=== PATIENT | female | born 1990 | race Caucasian/White ===

== ENCOUNTER 2016-10-05 10:11 | Emergency (ER) | payer MEDICAID, OTHER ==
[~2016-10-05] VITALS: Ht 152.4 cm; Wt 52.2 kg
[~2016-10-05 10:11] MED LIST: PREN0.01 PO; TYLE3 PO
[2016-10-05 10:45] VITALS: RESP 18
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
[2016-10-05 12:11] LABS: BLOOD, URINE NEG (NEG); COMMENT (UR) CULT NOT INDICATED; CULTURE IF INDICATED CULT NOT INDICATED; GLUCOSE,URINE NEG (NEG); KETONE, URINE NEG (NEG); NITRITE,URINE NEG (NEG); SQUAMOUS EPITHELIAL CELL URINE 3 /hpf (0-5); URINE COLOR LIGHT-YELLOW (YELLW/STRAW)
== END 2016-10-05 12:31 | disposition home or self-care (01) ==
LOC: HOBED 10:11
DX: R10.9 Unspecified abdominal pain (principal); Z3A.18 18 weeks gestation of pregnancy
CPT/HCPCS: 81001; 87210; 99283

== ENCOUNTER 2016-10-13 13:52 | Emergency (ER) | payer OTHER ==
[~2016-10-13 13:52] MED LIST changes: -TYLE3 PO
--- NOTE | 2016-10-13 14:28 | PD ---
HPI Chief Complaint Nausea and vomiting Travel History International Travel<30 Days: No Contact w/Intl Traveler<30Days: No Known Affected Area: No History of Present Illness HPI 22 yo at 20w 2d presents with nausea and vomiting. Also reports diarrhea. Reports symptoms beginning this morning. Reports sick contacts at home. Denies F/C. No problems this . Allergies-Medications (Allergen,Severity, Reaction): Coded Allergies: Penicillin (Verified Allergy, Unknown, 06/21/14) Uncoded Allergies: CINNAMIN (Allergy, Severe, 02/08/08) Home Meds Active Scripts Ondansetron (Zofran)4 Mg Tab4 Mg PO Q6HR PRN (NAUSEA OR VOMITING) #10 TAB Ref 0 Prov:Connie Woodruff MD 10/13/16 Reported Medications Multivit/Min/Fol Ac/Iron/Pren ( Vit ( Plus)) Tab1 Tab PO DAILY 06/21/14 Physical Exam AFVSS BP 106/71 Narrative GENERAL: Well-nourished, well-developed patient. SKIN: Warm and dry. HEAD: Normocephalic and atraumatic. EYES: No scleral icterus. No injection or drainage. ENT: No nasal drainage noted. Mucous membranes pink. Airway patent. NECK: Supple, trachea midline. No JVD. CARDIOVASCULAR: Regular rate and rhythm without murmurs, gallops, or rubs. RESPIRATORY: Breath sounds equal bilaterally. No accessory muscle use. BREASTS: Bilateral exam showed no masses , no retractions, no nipple discharge. ABDOMEN/GI: Abdomen soft, non-tender, bowel sounds present, no rebound, no guarding Gravid to [-] weeks size Fundal Height: [-] GENITOURINARY: External Genitalia: intact and normal in appearance BUS glands: [-] Cervix: [-] Dilatation: [-] Effacement: [-] Station: [-] Presentation: [-] Membranes: [intact or ruptured] Uterine Contractions: [-] FHT's: Category: [-] Baseline: [-] Reactive: [-] Variability: [-] Decels: [-] EXTREMITIES: No cyanosis or edema. BACK: Nontender without obvious deformity. No CVA tenderness. NEUROLOGICAL: Awake and alert. Motor and sensory grossly within normal limits. Five out of 5 muscle strength in all muscle groups. Normal speech. Data Data Labs Laboratory Tests Test 10/13/16 10/13/16 14:05 14:40 Urine Color YELLOW Urine Turbidity HAZY Urine pH 5.5 Urine Specific [place] 1.026 Urine Protein TRACE mg/dL Urine Glucose (UA) NEG mg/dL Urine Ketones 150 mg/dL Urine Occult Blood NEG Urine Nitrite NEG Urine Bilirubin NEG Urine Urobilinogen LESS THAN 2.0 MG/DL Urine Leukocyte Esterase NEG Urine RBC LESS THAN 1 /hpf Urine WBC 2 /hpf Urine Squamous Epithelial 2 /hpf Cells Urine Mucus FEW /lpf Microscopic Urinalysis Comment CULT NOT INDICATED White Blood Count 13.5 TH/MM3 Red Blood Count 4.62 MIL/MM3 Hemoglobin 13.9 GM/DL Hematocrit 41.2 % Mean Corpuscular Volume 89.2 FL Mean Corpuscular Hemoglobin 30.1 PG Mean Corpuscular Hemoglobin 33.7 % Concent Red Cell Distribution Width 12.9 % Platelet Count 255 TH/MM3 Mean Platelet Volume 8.5 FL Neutrophils (%) (Auto) 93.7 % Lymphocytes (%) (Auto) 3.8 % Monocytes (%) (Auto) 2.3 % Eosinophils (%) (Auto) 0.1 % Basophils (%) (Auto) 0.1 % Neutrophils # (Auto) 12.6 TH/MM3 Lymphocytes # (Auto) 0.5 TH/MM3 Monocytes # (Auto) 0.3 TH/MM3 Eosinophils # (Auto) 0.0 TH/MM3 Basophils # (Auto) 0.0 TH/MM3 CBC Comment DIFF FINAL Differential Comment Sodium Level 141 MEQ/L Potassium Level 3.7 MEQ/L Chloride Level 108 MEQ/L Carbon Dioxide Level 25.0 MEQ/L Anion Gap 8 MEQ/L Blood Urea Nitrogen 8 MG/DL Creatinine 0.42 MG/DL Estimat Glomerular Filtration 185 ML/MIN Rate Random Glucose 86 MG/DL Calcium Level 8.7 MG/DL Total Bilirubin 0.7 MG/DL Aspartate Amino Transf 20 U/L (AST/SGOT) Alanine Aminotransferase 21 U/L (ALT/SGPT) Alkaline Phosphatase 58 U/L Total Protein 7.6 GM/DL Albumin 3.4 GM/DL [facility] Interpretation(s) at 20w 2d with nausea and vomiting. Plan Will begin IVF and antiemetics. Will obtain CBC and CMP. UA ordered. Patient feeling better and voiding after IVF and antiemetics. Will d/c home after tolerating po. Rx for Zofran. Close f/u with OB provider encouraged. All questions answered. Diagnosis Diagnosis: Primary Impression: 20 weeks gestation of Additional Impression: Nausea and vomiting during prior to 22 weeks gestation Disposition: 01 DISCHARGE HOME Condition: Stable Scripts Ondansetron (Zofran)4 Mg Tab4 Mg PO Q6HR PRN (NAUSEA OR VOMITING) #10 TAB Ref 0 Prov:Connie Woodruff MD 10/13/16 Connie Woodruff MD Oct 13, 2016 14:28
[2016-10-13] MEDS ORDERED: LACTATED RINGER'S 1000 ML INJ 1,000 ML IV SCH (15:00)
[2016-10-13] MEDS ORDERED: LACTATED RINGER'S 1000 ML INJ 1,000 ML IV ONE (15:00)
[2016-10-13 15:13] LABS: AUTOMATED NEUTROPHIL # 12.6 TH/MM3 (1.8-7.7); BASOPHIL % 0.1 % (0.0-2.0); EOSINOPHIL % 0.1 % (0.0-4.0); HEMATOCRIT 41.2 % (35.0-46.0); HEMO FLAGS DIFF FINAL; LYMPH % 3.8 % (9.0-44.0); LYMPHOCYTE # 0.5 TH/MM3 (1.0-4.8); MEAN CELL VOLUME 89.2 FL (80.0-100.0); MEAN CORPUSCULAR HEMOGLOBIN 30.1 PG (27.0-34.0); MEAN CORPUSCULAR HGB CONC 33.7 % (32.0-36.0); MONO % 2.3 % (0.0-8.0); NEUT % 93.7 % (16.0-70.0); PLATELET COUNT 255 TH/MM3 (150-450); RED BLOOD COUNT 4.62 MIL/MM3 (4.00-5.30); RED CELL DISTRIBUTION WIDTH 12.9 % (11.6-17.2); WHITE BLOOD COUNT 13.5 TH/MM3 (4.0-11.0)
[2016-10-13 15:22] LABS: BLOOD, URINE NEG (NEG); GLUCOSE,URINE NEG (NEG); KETONE, URINE 150 mg/dL (NEG); MUCUS URINE FEW /lpf (OCC); NITRITE,URINE NEG (NEG); PH, URINE 5.5 (5.0-8.5); SQUAMOUS EPITHELIAL CELL URINE 2 /hpf (0-5); URINE COLOR YELLOW (YELLW/STRAW)
[2016-10-13 15:35] LABS: ANION GAP 8 MEQ/L (5-15); AST (GOT) 20 U/L (15-37); BLOOD UREA NITROGEN 8 MG/DL (7-18); CHLORIDE 108 MEQ/L (98-107); GLOMERULAR FILTRATION RATE 185 ML/MIN (>89); POTASSIUM 3.7 MEQ/L (3.5-5.1); SODIUM (NA) 141 MEQ/L (136-145)
[2016-10-13 15:36] LABS: COMMENT (UR) CULT NOT INDICATED; CULTURE IF INDICATED CULT NOT INDICATED
[2016-10-13 15:38] LABS: ALKALINE PHOSPHATASE 58 U/L (45-117); ALT (GPT) 21 U/L (10-53); TOTAL BILIRUBIN ADULT 0.7 MG/DL (0.2-1.0)
[2016-10-13] MEDS ORDERED: ONDANSETRON HCL 4 MG/2 ML VIAL IV PUSH ONE (16:00)
[2016-10-13] MEDS ORDERED: ACETAMINOPHEN 325 MG TAB PO ONE (16:30)
[2016-10-13] MEDS ORDERED: ZOFR4TAB PO (17:28)
== END 2016-10-13 17:44 | disposition home or self-care (01) ==
LOC: HOBED 13:52
DX: O26.892 Other specified pregnancy related conditions, second trimester (principal); R11.2 Nausea with vomiting, unspecified; R19.7 Diarrhea, unspecified; Z3A.20 20 weeks gestation of pregnancy
CPT/HCPCS: 80053; 81001; 85025; 96361; 96374; 99284; J2405; J7120

== ENCOUNTER 2016-11-01 17:22 | Emergency (ER) | payer OTHER ==
[~2016-11-01 17:22] MED LIST changes: +ZOFR4TAB PO
--- NOTE | 2016-11-01 18:19 | PD ---
HPI Chief Complaint leakage of fluid Date Seen: Nov 01, 2016 Travel History International Travel<30 Days: No Contact w/Intl Traveler<30Days: No Known Affected Area: No History of Present Illness HPI This is a 26y/o at 22w2d who presents to the [facility] with reports of leakage of clear fluid at 4pm saturating 2 washcloths. She denies meche bleeding or contractions with only some back pain. Amnisure noted to be negative. care with Dr. Baerden, care complicated by: 1. h/o LGA baby Para: 1 : 2 History Past Medical History Medical History: Denies Significant Hx Obstetric History Obstetric History 10/11/14 FT Male 9lbs "Kunal" Past Surgical History Surgical History: No Previous Surgery Family History Family History: Negative Social History Alcohol Use: No Tobacco Use: No Substance Abuse: No Allergies-Medications (Allergen,Severity, Reaction): Coded Allergies: Penicillin (Verified Allergy, Unknown, 06/21/14) Uncoded Allergies: CINNAMIN (Allergy, Severe, 02/08/08) Home Meds Active Scripts Ondansetron (Zofran)4 Mg Tab4 Mg PO Q6HR PRN (NAUSEA OR VOMITING) #10 TAB Ref 0 Prov:Connie Woodruff MD 10/13/16 Reported Medications Multivit/Min/Fol Ac/Iron/Pren ( Vit ( Plus)) Tab1 Tab PO DAILY 06/21/14 Review of Systems Except as stated in HPI: all other systems reviewed are Neg Physical Exam Narrative GENERAL: Well-nourished, well-developed patient. SKIN: Warm and dry. HEAD: Normocephalic and atraumatic. EYES: No scleral icterus. No injection or drainage. ENT: No nasal drainage noted. Mucous membranes pink. Airway patent. NECK: Supple, trachea midline. No JVD. CARDIOVASCULAR: Regular rate and rhythm without murmurs, gallops, or rubs. RESPIRATORY: Breath sounds equal bilaterally. No accessory muscle use. BREASTS: Bilateral exam showed no masses , no retractions, no nipple discharge. ABDOMEN/GI: Abdomen soft, non-tender, bowel sounds present, no rebound, no guarding Gravid to 23 weeks size GENITOURINARY: External Genitalia: intact and normal in appearance Sterile speculum exam: visually closed, no pooling noted Uterine Contractions: None FHT's: Category: appropriate for gestational age EXTREMITIES: No cyanosis or edema. BACK: Nontender without obvious deformity. No CVA tenderness. NEUROLOGICAL: Awake and alert. Motor and sensory grossly within normal limits. Five out of 5 muscle strength in all muscle groups. Normal speech. Data Data Vital Signs Reviewed: Yes Orders Vital Signs (Adult) .ON ADMISSION (11/01/16 18:00) ^ Labor Status (11/01/16 18:00) Pamg-1 Test .ONCE (11/01/16 18:00) MDM Medical Record Reviewed: No Narrative Course / MDM 26y/o at 22w2d who presents for evaluation of PPROM. -reassuring status -no leakage of fluid on speculum exam -amnisure negative Plan -d/c home -f/u with Dr. Bustos as scheduled on Wednesday Diagnosis Diagnosis: Primary Impression: 20 weeks gestation of Additional Impression: Abdominal cramping affecting Disposition: DISCHARGE HOME Patient Instructions: Premature Rupture of Membranes (ED) Shanique Patel MD Nov 01, 2016 18:19
== END 2016-11-01 18:30 | disposition home or self-care (01) ==
LOC: HOBED 17:22
DX: O26.892 Other specified pregnancy related conditions, second trimester (principal); R10.9 Unspecified abdominal pain; Z3A.22 22 weeks gestation of pregnancy
CPT/HCPCS: 84112; 99282

== ENCOUNTER 2017-01-06 18:42 | Emergency (ER) | payer SELFPAY ==
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
== END 2017-01-06 19:52 | disposition home or self-care (01) ==
LOC: HOBED 18:42
DX: O47.03 False labor before 37 completed weeks of gestation, third trimester (principal); M54.5 Low back pain; Z3A.31 31 weeks gestation of pregnancy
CPT/HCPCS: 99283

== ENCOUNTER 2017-02-22 05:38 | Inpatient (IN) | payer MEDICAID ==
[2017-02-22] VITALS (11 sets, daily range): BP systolic 106–149; BP diastolic 60–75; PULSE 67–98; RESP 15–20; TEMP 97.5–98; O2SAT 100
[~2017-02-22] VITALS: Ht 160 cm; Wt 68.9 kg
[2017-02-22] MEDS ORDERED: CITRIC ACID-SODIUM CITRATE LIQ 30 ML UDC PO SCH (06:15)
[2017-02-22] MEDS ORDERED: CLINDAMYCIN 600 MG/NS 100 ML IV SCH ×2 (06:15)
[2017-02-22] MEDS ORDERED: LACTATED RINGER'S 1000 ML IV SCH (06:15)
[2017-02-22] MEDS ORDERED: LACTATED RINGER'S 1000 ML IV ONE (06:15)
[2017-02-22 06:23] LABS: AUTOMATED NEUTROPHIL # 6.5 TH/MM3 (1.8-7.7); BASOPHIL # 0.1 TH/MM3 (0-0.2); BASOPHIL % 0.5 % (0.0-2.0); EOSINOPHIL # 0.2 TH/MM3 (0-0.4); EOSINOPHIL % 2.4 % (0.0-4.0); HEMO FLAGS DIFF FINAL; LYMPH % 22.6 % (9.0-44.0); LYMPHOCYTE # 2.2 TH/MM3 (1.0-4.8); MEAN CELL VOLUME 89.2 FL (80.0-100.0); MEAN CORPUSCULAR HEMOGLOBIN 30.8 PG (27.0-34.0); MEAN CORPUSCULAR HGB CONC 34.6 % (32.0-36.0); MONO % 7.9 % (0.0-8.0); NEUT % 66.6 % (16.0-70.0); PLATELET COUNT 233 TH/MM3 (150-450); RED BLOOD COUNT 4.15 MIL/MM3 (4.00-5.30); RED CELL DISTRIBUTION WIDTH 13.4 % (11.6-17.2); WHITE BLOOD COUNT 9.8 TH/MM3 (4.0-11.0)
[2017-02-22 06:42] LABS: BLOOD, URINE NEG (NEG); COMMENT (UR) CULT NOT INDICATED; CULTURE IF INDICATED CULT NOT INDICATED; GLUCOSE,URINE NEG (NEG); KETONE, URINE NEG (NEG); MUCUS URINE FEW /lpf (OCC); NITRITE,URINE NEG (NEG); PH, URINE 6.5 (5.0-8.5); SQUAMOUS EPITHELIAL CELL URINE 1 /hpf (0-5); URINE COLOR YELLOW (YELLW/STRAW)
[2017-02-22] MEDS ORDERED: EPIDURAL-NALOXONE HCL 0.4 MG/ML AMP IV PUSH PRN (07:30)
[2017-02-22] MEDS ORDERED: EPIDURAL-DIPHENHYDRAMINE HCL 50 MG/ML VIAL IV PUSH PRN (07:30)
[2017-02-22] MEDS ORDERED: EPIDURAL-DO NOT ADMINISTER ANTICOAGULANTS PRN (07:30)
[2017-02-22] MEDS ORDERED: EPIDURAL-DIPHENHYDRAMINE HCL 50 MG CAP PO PRN (07:30)
[2017-02-22] MEDS ORDERED: EPIDURAL-NO SYSTEMIC NARCOTICS PRN (07:30)
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
[2017-02-22] MEDS ORDERED: ACETAMINOPHEN 1000 MG/100 ML 100 ML IV ONE (07:33)
[2017-02-22] MEDS ORDERED: DEXAMETHASONE SOD PHOS 4 MG/ML VIAL ONE (07:48)
[2017-02-22] MEDS ORDERED: SODIUM CHLORIDE 0.9% 20 ML VIAL ONE (07:49)
[2017-02-22] MEDS ORDERED: BUPIVACAINE HCL PF 0.5% 30 ML VIAL ONE (07:49)
--- NOTE | 2017-02-22 08:08 | PD.OB.DELI ---
Procedure Note Section Procedure Pre Op Diagnosis: (1) 39 weeks gestation of (2) History of trauma Post Op Diagnosis: (1) 39 weeks gestation of Performed by Tristen Bustos Procedure: Primary Low Transverse Sec Indication for delivery: Maternal medical problems (previous traumatic ) Previous condition: None Informed consent obtained: For anesthesia, For procedure Confirmed correct: Patient, Procedure, Time-out taken Anesthesia: Spinal Medication prior to procedure: Antibiotics, IV Monitoring during procedure: Blood pressure monitoring Urinary catheter: Inserted using sterile technique, To dependent drainage Sterile preparation: Duraprep Position: Supine with wedge to left side Operative Features Skin Incision: Pfannenstiel Uterine Incision: Low transverse w/knife / blunt ext Membranes Ruptured: Artificially Presentation: Occiput anterior Delivery date: Feb 22, 2017 Delivery time: 07:44 Delivery of : Uneventful Infant: Male, Single One Minute : 8 Five Minute : 8 Weight: unknown Status of : Viable Placenta delivered: Intact Medications: Antibiotics, Oxytocin Estimated blood loss: 500 Procedure tolerated: Well Maternal Condition: Stable Condition: Stable Tristen Bustos MD Feb 22, 2017 08:08
[2017-02-22] MEDS ORDERED: SODIUM CHLORIDE 0.9% FLUSH 10 ML FLUSH IV FLUSH PRN (08:15)
--- NOTE | 2017-02-22 08:28 | MP ---
cc: AMERICO BUSTOS M.D. DATE OF SURGERY 02/22/2017 PROCEDURE Primary low transverse section. PREOPERATIVE DIAGNOSES 1. 39 weeks. 2. The patient has had a traumatic injury both vaginally and psychologically with her first delivery. POSTOPERATIVE DIAGNOSES 1. 39 weeks. 2. The patient has had a traumatic injury both vaginally and psychologically with her first delivery. SURGEON Dr. Americo Bustos ESTIMATED BLOOD LOSS 500 cc. ANESTHESIA Spinal, Dr. Alexis COMPLICATIONS None. FINDINGS Live male , Apgars of 8 and 8. PROCEDURE IN DETAIL After informed consent, the patient was taken to the operating room where she was placed under spinal anesthesia, placed n supine position in left lateral tilt. The abdomen, perineum and vagina were prepped and draped in normal sterile fashion after a time-out was taken and the was under adequate anesthesia. A Pfannenstiel skin incision was carried sharply through the skin to the fascia. The fascia was nicked in the midline. The incision was extended laterally using Tirado scissors. Rectus muscles dissected off fascia by sharp and blunt dissection and the rectus muscle in the midline. The peritoneum was entered bluntly with a finger. The incision was extended laterally using blunt traction. A hand was placed into the abdomen. The uterus was noted to be midline. A bladder flap was created by dissecting the bladder off the lower use segment. A low-transverse uterine incision was then made, carried sharply into the uterine cavity. Clear fluid was noted. The incision was then extended laterally using blunt traction. A hand was placed in the uterus. The 's head was guided through the incision. Using fundal pressure the infant's head readily delivered. The nose and mouth suctioned well. Cord was clamped and cut and the was handed to pediatrics in attendance. Cord blood was collected. Placenta was delivered manually. The uterus was exteriorized, wiped free from all remaining products of conception. The uterine incision was then closed with running locking stitch of chromic suture. A second imbricating layer was placed. Good hemostasis was achieved. The uterus was placed back in the abdomen, noted to be hemostatic. The peritoneum was closed with Vicryl suture. The fascia was closed with Vicryl suture. The skin was closed with subcuticular stitch. Each layer was noted be hemostatic prior to closure. The patient tolerated the procedure well. MD LEONELA Collado 8:10 AM 8:17 AM
[2017-02-22] MEDS ORDERED: OXYTOCIN 30 UNITS-500ML PREMIX 500 ML IV ONE (08:30)
[2017-02-22] MEDS ORDERED: OXYTOCIN 30 UNITS-500ML PREMIX 500 ML ONE (08:39)
[2017-02-22] MEDS ORDERED: SODIUM CHLORIDE 0.9% FLUSH 10 ML FLUSH IV FLUSH SCH (09:00)
[2017-02-22] MEDS ORDERED: LACTATED RINGER'S 1000 ML INJ 1,000 ML IV SCH (13:08)
[2017-02-22] MEDS: SIMETHICONE 80 MG CHEWABLE TAB PO PRN (16:04)
[2017-02-22] MEDS: IBUPROFEN 600 MG TAB PO PRN (16:04)
[2017-02-22] MEDS ORDERED: OXYTOCIN 30 UNITS-500ML PREMIX 500 ML IV PRN (18:15)
[2017-02-22] MEDS: KETOROLAC TROMETHAMINE 60 MG/2 ML (IM) VIAL IM PRN (22:20)
[2017-02-23 01:36] VITALS: BP 104/56; PULSE 62; RESP 18; TEMP 97.6
[2017-02-23 01:56] VITALS: BP 104/56; PULSE 62; RESP 18; TEMP 97.6
[2017-02-23 04:00] VITALS: BP 100/56; PULSE 63; RESP 18; TEMP 97.9
[2017-02-23] MEDS: KETOROLAC TROMETHAMINE 60 MG/2 ML (IM) VIAL IM PRN (04:04)
[2017-02-23 05:48] LABS: AUTOMATED NEUTROPHIL # 8.1 TH/MM3 (1.8-7.7); BASOPHIL % 0.1 % (0.0-2.0); EOSINOPHIL # 0.1 TH/MM3 (0-0.4); EOSINOPHIL % 1.1 % (0.0-4.0); HEMATOCRIT 27.7 % (35.0-46.0); HEMO FLAGS DIFF FINAL; LYMPH % 21.4 % (9.0-44.0); LYMPHOCYTE # 2.5 TH/MM3 (1.0-4.8); MEAN CELL VOLUME 90.2 FL (80.0-100.0); MEAN CORPUSCULAR HEMOGLOBIN 30.2 PG (27.0-34.0); MEAN CORPUSCULAR HGB CONC 33.5 % (32.0-36.0); MONO % 8.9 % (0.0-8.0); NEUT % 68.5 % (16.0-70.0); PLATELET COUNT 224 TH/MM3 (150-450); RED BLOOD COUNT 3.07 MIL/MM3 (4.00-5.30); RED CELL DISTRIBUTION WIDTH 13.6 % (11.6-17.2); WHITE BLOOD COUNT 11.8 TH/MM3 (4.0-11.0)
[2017-02-23] MEDS: oxyCODONE/ACETAMINOPHEN 5 MG/325 MG TAB PO PRN ×5 (06:33→23:19)
[2017-02-23 08:20] VITALS: BP 87/58; PULSE 96; RESP 16; TEMP 98
[2017-02-23] MEDS: IBUPROFEN 600 MG TAB PO PRN ×3 (10:40→23:19)
[2017-02-23] MEDS: DOCUSATE SODIUM 50 MG/SENNA 8.6 MG TAB PO PRN (15:18)
[2017-02-23] MEDS ORDERED: DIPHTH/TETANUS/ACEL PERTUSSIS (BOOSTER) 0.5 ML VIAL/PFS IM ONE (16:00)
[2017-02-23] MEDS ORDERED: MEASLES, MUMPS, RUBELLA VACCINE 0.5 ML VIAL SQ ONE (16:00)
--- NOTE | 2017-02-23 17:35 | HHI.DCPOC ---
Discharge Care Plan Diagnosis: (1) History of trauma Report Symptoms to Your Doctor -Temperature above 100.5 degrees -Redness, of incision or excessive or foul smelling drainage -Unusual pain or calf pain -Increased vaginal bleeding -Painful or difficulty urinating -Feelings of extreme sadness or anxiety after 2 weeks Goals to Promote Your Health * To prevent worsening of your condition and complications * To maintain your health at the optimal level Directions to Meet Your Goals Take your medications as prescribed Follow your dietary instruction Follow activity as directed Ensure plenty of rest for recovery Drink fluids for hydration Keep your appointments as scheduled Take your immunizations and boosters as scheduled If your symptoms worsen call your PCP, if no PCP go to Urgent Care Center or Emergency Room Smoking is Dangerous to Your Health. Avoid second hand smoke Call the 24-hour crisis hotline for domestic abuse at Tristen Bustos MD Feb 23, 2017 17:35
--- NOTE | 2017-02-23 17:35 | HHI.OB ---
Subjective Post Day: 1 Remarks doing well Objective Vitals/I&O Vital Signs Date Time Temp Pulse Resp B/P (MAP) Pulse Ox O2 Delivery O2 Flow Rate FiO2 02/23/17 08:20 98.0 96 16 87/58 (68) 02/23/17 04:00 97.9 63 18 100/56 (71) 02/23/17 01:56 97.6 62 18 104/56 (72) 02/23/17 01:36 97.6 62 18 104/56 02/23/17 01:36 97.6 62 18 104/56 (72) Objective Remarks GENERAL: Well-nourished, well-developed patient. ABDOMEN/GI: Abdomen soft, non-tender. Fundus: Firm, non-tender at umbilicus. GENITOURINARY: Light to moderate bleeding. EXTREMITIES: No cyanosis or edema, non-tender, without signs of DVT. Medications and IVs Current Medications Medications (Trade) Dose Ordered Sig/Drea Route Start Time Stop Time Status Last Admin (Bicitra Liq) 30 ml PROJECT MANAGER FINANCE PO 02/22/17 06:15 02/25/17 06:14 02/22/17 07:09 Clindamycin Phosphate 600 mg/ Sodium Chloride 104 ml @ 208 mls/hr PROJECT MANAGER FINANCE IV 02/22/17 06:15 02/22/17 07:09 Oxytocin 500 ml @ 100 mls/hr UNSCH X1 PRN IV 02/22/17 18:15 02/23/17 18:14 02/22/17 15:15 (NS Flush) 2 ml BID IV FLUSH 02/22/17 09:00 (NS Flush) 2 ml UNSCH PRN IV FLUSH 02/22/17 08:15 (Mylicon Chew) 80 mg QID PRN PO 02/22/17 08:15 02/22/17 16:04 (Motrin) 600 mg Q6H PRN PO 02/22/17 08:15 02/23/17 16:48 (Percocet 5-325 Mg) 1 tab Q4H PRN PO 02/22/17 08:15 02/23/17 15:18 (Percocet 5-325 Mg) 2 tab Q4H PRN PO 02/22/17 08:15 (Danielle-Colace) 2 tab Q12H PRN PO 02/23/17 12:15 02/23/17 15:18 Assessment/Plan Problem List: (1) 39 weeks gestation of ICD Codes: Z3A.39 - 39 weeks gestation of (2) History of trauma ICD Codes: Z87.898 - Personal history of other specified conditions Assessment and Plan POD #1 Tristen Bustos MD Feb 23, 2017 17:35
[2017-02-23 19:40] VITALS: BP_SYST 108; BP_SYST 96; BP_DIAS 53; BP_DIAS 67; PULSE 73; PULSE 78; RESP 16; TEMP 97.6
[2017-02-23] MEDS: SIMETHICONE 80 MG CHEWABLE TAB PO PRN (19:48)
[2017-02-24] MEDS: IBUPROFEN 600 MG TAB PO PRN ×4 (04:53→23:46)
[2017-02-24] MEDS: oxyCODONE/ACETAMINOPHEN 5 MG/325 MG TAB PO PRN ×5 (04:54→22:54)
--- NOTE | 2017-02-24 07:44 | HHI.OB ---
Subjective Post Day: 2 Remarks doing well Objective Vitals/I&O Vital Signs Date Time Temp Pulse Resp B/P (MAP) Pulse Ox O2 Delivery O2 Flow Rate FiO2 02/23/17 19:40 97.6 73 16 108/67 (81) 02/23/17 19:40 78 96/53 (67) 02/23/17 08:20 98.0 96 16 87/58 (68) Objective Remarks GENERAL: Well-nourished, well-developed patient. ABDOMEN/GI: Abdomen soft, non-tender. Fundus: Firm, non-tender at umbilicus. GENITOURINARY: Light to moderate bleeding. EXTREMITIES: No cyanosis or edema, non-tender, without signs of DVT. Medications and IVs Current Medications Medications (Trade) Dose Ordered Sig/Drea Route Start Time Stop Time Status Last Admin (Bicitra Liq) 30 ml FUNDS DEVELOPMENT DIRECTOR PO 02/22/17 06:15 02/25/17 06:14 02/22/17 07:09 Clindamycin Phosphate 600 mg/ Sodium Chloride 104 ml @ 208 mls/hr FUNDS DEVELOPMENT DIRECTOR IV 02/22/17 06:15 02/22/17 07:09 (NS Flush) 2 ml BID IV FLUSH 02/22/17 09:00 (NS Flush) 2 ml UNSCH PRN IV FLUSH 02/22/17 08:15 (Mylicon Chew) 80 mg QID PRN PO 02/22/17 08:15 02/23/17 19:48 (Motrin) 600 mg Q6H PRN PO 02/22/17 08:15 02/24/17 04:53 (Percocet 5-325 Mg) 1 tab Q4H PRN PO 02/22/17 08:15 02/23/17 15:18 (Percocet 5-325 Mg) 2 tab Q4H PRN PO 02/22/17 08:15 02/24/17 04:54 (Danielle-Colace) 2 tab Q12H PRN PO 02/23/17 12:15 02/23/17 15:18 Assessment/Plan Problem List: (1) 39 weeks gestation of ICD Codes: Z3A.39 - 39 weeks gestation of (2) History of trauma ICD Codes: Z87.898 - Personal history of other specified conditions Assessment and Plan POD #2 doing well, Dc home follow up 2 weeks Tristen Bustos MD Feb 24, 2017 07:44
[2017-02-24] MEDS ORDERED: OXYC1TAB63 PO (07:45)
--- NOTE | 2017-02-24 07:50 | HHI.DS ---
Admission Date Feb 22, 2017 at 05:38 Discharge Date: Feb 24, 2017 Admitting Diagnosis Diagnosis: (1) 39 weeks gestation of Diagnosis: Principal ICD Codes: Z3A.39 - 39 weeks gestation of (2) delivery delivered Diagnosis: Principal ICD Codes: O82 - Encounter for delivery without indication Delivery Date: Feb 22, 2017 : Primary Reason: previous traumatic injury Infant: Male, Single Brief History 26 yo who previously had traumatic delivery with vaginal trauma and difficult delivery for primary CS Hospital Course doing well, CS for traumatic delivery, 2 days post op for DC home Pt Condition on Discharge: Good Discharge Disposition: Discharge Home Discharge Instructions Diet Instructions: As Tolerated, No Restrictions Activities You Can Perform: Pelvic Rest Activities to Avoid: Driving for 24 hrs Follow up Referrals: TRANSPORTATION ANALYST - 2 Weeks @ [facility] with Tristen Bustos MD New Medications: Oxycodone-Acetaminophen (Oxycodone-Acetaminophen) 5-325 mg Tab 1 TAB PO Q4H PRN for PAIN SCALE 3 TO 5, #30 TAB 0 Refills Discontinued Medications: Multivit/Min/Fol Ac/Iron/Pren ( Vit ( Plus)) Tab 1 TAB PO DAILY, TAB Ondansetron (Zofran) 4 Mg Tab 4 MG PO Q6HR PRN for NAUSEA OR VOMITING, #10 TAB 0 Refills Tristen Bustos MD Feb 24, 2017 07:50
[2017-02-24] MEDS: DOCUSATE SODIUM 50 MG/SENNA 8.6 MG TAB PO PRN (09:52)
[2017-02-24 09:56] VITALS: BP 100/52; PULSE 73; RESP 18; TEMP 97.7
[2017-02-24] MEDS: SIMETHICONE 80 MG CHEWABLE TAB PO PRN (19:03)
[2017-02-24 19:04] VITALS: BP 106/60; PULSE 70; RESP 17; TEMP 98.3
[2017-02-25] MEDS: DOCUSATE SODIUM 50 MG/SENNA 8.6 MG TAB PO PRN ×2 (00:13→13:23)
[2017-02-25] MEDS: SIMETHICONE 80 MG CHEWABLE TAB PO PRN ×2 (00:13→09:17)
[2017-02-25] MEDS: oxyCODONE/ACETAMINOPHEN 5 MG/325 MG TAB PO PRN ×3 (03:54→13:23)
[2017-02-25] MEDS: IBUPROFEN 600 MG TAB PO PRN ×2 (06:38→13:23)
[2017-02-25 08:55] VITALS: BP 85/46; PULSE 78; RESP 18; TEMP 98.5
[2017-02-25 08:56] VITALS: BP 129/74; PULSE 82
--- NOTE | 2017-02-25 09:00 | HHI.OB ---
Subjective Post Day: 3 Remarks doing well Objective Vitals/I&O Vital Signs Date Time Temp Pulse Resp B/P (MAP) Pulse Ox O2 Delivery O2 Flow Rate FiO2 02/25/17 08:55 98.5 78 18 85/46 (59) 02/24/17 19:04 98.3 70 17 106/60 (75) 02/24/17 09:56 97.7 73 18 100/52 (68) Objective Remarks GENERAL: Well-nourished, well-developed patient. ABDOMEN/GI: Abdomen soft, non-tender. Fundus: Firm, non-tender at umbilicus. GENITOURINARY: Light to moderate bleeding. EXTREMITIES: No cyanosis or edema, non-tender, without signs of DVT. Medications and IVs Current Medications Medications (Trade) Dose Ordered Sig/Drea Route Start Time Stop Time Status Last Admin Clindamycin Phosphate 600 mg/ Sodium Chloride 104 ml @ 208 mls/hr PAINT SPRAY TENDER IV 02/22/17 06:15 02/22/17 07:09 (NS Flush) 2 ml BID IV FLUSH 02/22/17 09:00 (NS Flush) 2 ml UNSCH PRN IV FLUSH 02/22/17 08:15 (Mylicon Chew) 80 mg QID PRN PO 02/22/17 08:15 02/25/17 00:13 (Motrin) 600 mg Q6H PRN PO 02/22/17 08:15 02/25/17 06:38 (Percocet 5-325 Mg) 1 tab Q4H PRN PO 02/22/17 08:15 02/23/17 15:18 (Percocet 5-325 Mg) 2 tab Q4H PRN PO 02/22/17 08:15 02/25/17 03:54 (Danielle-Colace) 2 tab Q12H PRN PO 02/23/17 12:15 02/25/17 00:13 Assessment/Plan Problem List: (1) 39 weeks gestation of ICD Codes: Z3A.39 - 39 weeks gestation of (2) History of trauma ICD Codes: Z87.898 - Personal history of other specified conditions Assessment and Plan POD #3 doing well, Dc home follow up 2 weeks Tristen Bustos MD Feb 25, 2017 09:00
== END 2017-02-25 14:28 | disposition home or self-care (01) | DRG 766 ==
LOC: H2EB 05:38 → HCIS 07:51 → H2EB 07:55 → H1EA 09:48
PROVIDERS: ADMIT Obstetrics & Gynecology; ATTEND Obstetrics & Gynecology
PROC: 10D00Z1 Extraction of Products of Conception, Low, Open Approach (ICD-10-PCS; principal; 2017-02-22)
DX: O75.89 Other specified complications of labor and delivery (principal); Z87.59 Personal history of other complications of pregnancy, childbirth and the puerperium; Z37.0 Single live birth; Z3A.39 39 weeks gestation of pregnancy
CPT/HCPCS: 59025; 81001; 85025; 85461; 86850; 86900; 86901; 90384; J0131; J1100; J1885; J2590; J2790; J7120

== ENCOUNTER 2017-08-24 18:58 | Emergency (ER) | payer SELFPAY ==
[~2017-08-24] VITALS: Ht 160 cm; Wt 61.3 kg
[~2017-08-24 18:58] MED LIST changes: +ACYC800T PO; -PREN0.01 PO; -ZOFR4TAB PO
[2017-08-24 19:09] VITALS: BP 121/78; PULSE 99; RESP 18; TEMP 98.5; O2SAT 99
[2017-08-24 19:25] VITALS: BP 128/78; PULSE 94; RESP 18; TEMP 98.5; O2SAT 99
[2017-08-24] MEDS ORDERED: ACETAMINOPHEN 500 MG CPLT PO ONE (19:30)
[2017-08-24] MEDS ORDERED: PREN1TAB63 (19:36)
--- NOTE | 2017-08-24 20:18 | RADRPT ---
EXAM DATE/TIME: 08/24/2017 19:39 [facility] COMPARISON: No previous studies available for comparison. INDICATIONS : Left ankle pain post fall. MEDICAL HISTORY : None. SURGICAL HISTORY : None. ENCOUNTER: Initial ACUITY: 1 day PAIN SCORE: 6/10 LOCATION: Left ankle. FINDINGS: Three view exam was performed of the left ankle. The bony structures are in normal alignment. No ev idence of fracture, dislocation, or soft tissue swelling. The ankle mortise is intact. No radiopaqu e foreign bodies are seen. Bony mineralization is normal. CONCLUSION: Intact left ankle. Tristen Ramirez MD on August 24, 2017 at 20:15 Board Certified Radiologist. This report was verified electronically.
--- NOTE | 2017-08-24 20:18 | RADRPT ---
EXAM DATE/TIME: 08/24/2017 19:39 [facility] COMPARISON: No previous studies available for comparison. INDICATIONS : Left foot pain post fall. MEDICAL HISTORY : None. SURGICAL HISTORY : None. ENCOUNTER: Initial ACUITY: 1 day PAIN SCORE: 8/10 LOCATION: Left foot. FINDINGS: Slight cortical and trabecular lucencies seen of the tip of the base of the fifth metatarsal, probabl y a nondisplaced avulsion fracture of peroneus brevis attachment. Other bones of the left foot are in tact. No subluxation. CONCLUSION: Nondisplaced avulsion fracture of the proximal tip of the base of the fifth metatarsal. Tristen Ramirez MD on August 24, 2017 at 20:14 Board Certified Radiologist. This report was verified electronically.
--- NOTE | 2017-08-24 20:35 | PD ---
HPI Chief Complaint: Musculoskeletal Complaint Time Seen by Provider: 19:22 Travel History International Travel<30 days: No Contact w/Intl Traveler<30days: No Traveled to known affect area: No History of Present Illness HPI This is a 27-year-old female who presents to the emergency department injuring her left foot. The patient was carrying her baby when her dog ran under her feet and she tripped and landed on her left foot. She has moderate pain on the left side of the foot, constant, worse with weightbearing, improved with rest. She denies any other injuries. PFSH Past Medical History Asthma: No Autoimmune Disease: No Blood Disorders: No Cardiovascular Problems: No Diminished Hearing: No Headaches: No Medical other: Yes (Blocked celiac artery) Musculoskeletal: Yes ( between shoulder blades worse when eating left great and 2nd toe) Neurologic: No Psychiatric: No Respiratory: No Migraines: No Ulcer: Yes Influenza Vaccination: No ?: Not LMP: 06/2016 Past Surgical History Section: Yes Social History Alcohol Use: No Tobacco Use: No Substance Use: No Allergies-Medications (Allergen,Severity, Reaction): Coded Allergies: penicillin G (Verified Allergy, Unknown, 04/25/17) Uncoded Allergies: CINNAMIN (Allergy, Severe, 02/08/08) Reported Meds & Prescriptions Reported Meds & Active Scripts Active Reported Vitamins 0.8 mg ( Multivit-Min W/Fe-FA) 1 Tab Tab Unknown Dose Review of Systems General / Constitutional: No: Fever, Chills Cardiovascular: No: Chest Pain or Discomfort Respiratory: No: Shortness of Breath Physical Exam Narrative GENERAL: Well-appearing, no acute distress, nontoxic SKIN: Ecchymoses over the lateral aspect of the left foot with a small hematoma HEAD: Atraumatic. Normocephalic. ENT: No nasal bleeding or discharge. Moist mucous membranes MUSCULOSKELETAL: Tender to palpation over the proximal aspect of the fifth metatarsal and over the posterior lateral malleolus. Vascular: 2+ left DP pulse with normal capillary refill. NEUROLOGICAL: Awake and alert. No obvious cranial nerve deficits. Motor grossly within normal limits. Normal speech. PSYCHIATRIC: Appropriate mood and affect; insight and judgment normal. Data Data Last Documented VS Vital Signs Date Time Temp Pulse Resp B/P (MAP) Pulse Ox O2 Delivery O2 Flow Rate FiO2 08/24/17 19:25 98.5 94 18 128/78 (95) 99 Orders Orders Acetaminophen (Tylenol) (08/24/17 19:30) Foot, Complete ([id number]) (08/24/17 ) Ankle, Complete ([id number]) (08/24/17 ) MDM Medical Decision Making Medical Screen Exam Complete: Yes Emergency Medical Condition: Yes Interpretation(s) Last 24 hours Impressions Foot X-Ray 08/24/17 0000 Signed Impressions: Service Date/Time: Thursday, August 24, 2017 19:39 - CONCLUSION: Nondisplaced avulsion fracture of the proximal tip of the base of the fifth metatarsal. Tristen Ramirez MD Ankle X-Ray 08/24/17 0000 Signed Impressions: Service Date/Time: Thursday, August 24, 2017 19:39 - CONCLUSION: Intact left ankle. Tristen Ramirez MD Differential Diagnosis Reed fracture, pseudo-Reed fracture, contusion, lateral malleolus fracture Narrative Course This is a 27-year-old female who presents to the emergency department having had a fall. She has bruising over the left lateral foot. X-ray demonstrates a pseudo-Reed fracture of the fifth metatarsal. She has a normal neurovascular exam. Patient was placed in a hard shoe and advised to follow-up with podiatry. She was discharged home. Diagnosis Primary Impression: Avulsion fracture of metatarsal bone of left foot Qualified Codes: S92.302A - Fracture of unspecified metatarsal bone(s), left foot, initial encounter for closed fracture Patient Instructions: General Instructions Additional Instructions: Keep your foot in a hard shoe and follow up with podiatry. Use crutches as needed. We have placed a mandatory referral for you to see a sweet dough mixer. If you don't hear from us please call the emergency department. Med/Other Pt SpecificInfo: No Change to Meds Disposition: 01 DISCHARGE HOME Condition: Stable Ana Celeste MD Aug 24, 2017 20:35
== END 2017-08-24 21:22 | disposition home or self-care (01) ==
LOC: PHEFT 18:58
DX: S92.355A Nondisplaced fracture of fifth metatarsal bone, left foot, initial encounter for closed fracture (principal); W18.31XA Fall on same level due to stepping on an object, initial encounter
CPT/HCPCS: 73610; 73630; 99283; E0113; L3260